=== PATIENT | female | born 1960 | race Caucasian/White ===

== ENCOUNTER → 2018-08-13 | Outpatient (CLI) | payer SELFPAY ==
[~2018-08-13] VITALS: Ht 162.6 cm; Wt 93.0 kg
[~2018-08-13] MED LIST: CEPH500C PO; CETI10TA17 PO; GLYB5TAB6 PO; INSU100V6 SQ; METO-387 PO; QUIN40TA14 PO
== END | disposition home or self-care (01) ==
LOC: PREOP 05:35 → EDSEX 05:35
PROVIDERS: ATTEND Podiatrist Foot & Ankle Surgery
DX: Z01.818 Encounter for other preprocedural examination (principal)

== ENCOUNTER 2018-08-15 05:47 | Day surgery (SDC) | payer BC ==
[~2018-08-15] VITALS: Ht 162.6 cm; Wt 93.0 kg
[2018-08-15] VITALS (9 sets, daily range): BP systolic 116–145; BP diastolic 61–80
[~2018-08-15 05:47] MED LIST changes: -CEPH500C PO
--- OUTSIDE RECORDS SUMMARY | 2018-08-15 05:51 | XMS REPORT | Continuity of Care Document ---
Author Organization Unknown Address Unknown Allergies There is no data. Medications There is no data. Problems There is no data. Procedures There is no data. Results Test Result Range A1C - 05/30/18 10:05 HEMOGLOBIN A1c 12.7 % of total Hgb <5.7 Encounters ACCT No. Visit Date/Time Discharge Status Pt. Type Provider Facility Loc./Unit Complaint [id number] 08/07/2018 13:40:00 08/07/2018 23:59:59 [facility] Outpatient CRYSTAL SCHAEFER [facility] [id number] 05/30/2018 10:00:00 Document Registration
[2018-08-15] MEDS ORDERED: fentaNYL INJECTION 100 MCG/2 ML AMP ONE (06:37)
[2018-08-15] MEDS ORDERED: proPOfol 200 MG/20 ML (DIPRIVAN) VIAL IV ONE (06:37)
[2018-08-15] MEDS ORDERED: LIDOCAINE PF 2% 5 ML (XYLOCAINE) VIAL ONE (06:37)
[2018-08-15] MEDS ORDERED: MIDAZOLAM 2 MG/2 ML (VERSED) VIAL ONE (06:37)
[2018-08-15] MEDS ORDERED: CLINDAMYCIN 600 MG/50 ML IVPB 50 ML IV ONE (07:00)
[2018-08-15] MEDS ORDERED: LIDOCAINE 1% INJ 20 ML 20 ML VIAL ONE (07:11)
[2018-08-15] MEDS ORDERED: BUPIVACAINE 0.5% 30 ML (SENSORCAINE) VIAL ONE (07:11)
--- NOTE | 2018-08-15 07:41 | Progress Note-Pre Operative ---
Pre-Operative Progress Note H&P Reviewed The H&P was reviewed, patient examined and no changes noted. Date Seen by Provider: Aug 15, 2018 Time Seen by Provider: 07:41 Date H&P Reviewed: Aug 15, 2018 Time H&P Reviewed: 07:41 Pre-Operative Diagnosis: Soft Tissue Lesion left foot SU WOLFE DPM Aug 15, 2018 07:41
[2018-08-15] MEDS ORDERED: inSUlin (REGULAR) HUMAN 1 UNIT/0.01 ML (CHARGE PER UNIT) SC NR (08:03)
[2018-08-15] MEDS ORDERED: PROPOFOL INJECTION 50 ML IV ONE (08:08)
[2018-08-15] MEDS ORDERED: LACTATED RINGERS 1,000 ML IV SCH (08:50)
--- NOTE | 2018-08-15 08:50 | Progress Note-Post Operative ---
Post-Operative Progess Note Surgeon (s)/Soft Work Cigar Machine Operator (s) Surgeon SU WOLFE DPM Soft Work Cigar Machine Operator: none Pre-Operative Diagnosis Soft Tissue Lesion left foot Post-Operative Diagnosis same Procedure & Operative Findings Date of Procedure 08/15/18 Procedure Performed/Findings Removal of soft tissue lesion left foot Anesthesia Type MAC Estimated Blood Loss Estimated blood loss (mL): Minimal Specimens/Packing Specimens Removed Soft Tissue Lesion (deep fascia area), left SU WOLFE DPM Aug 15, 2018 08:50
--- NOTE | 2018-08-15 08:52 | Anesthesia-General Post-Op ---
MAC Patient Condition Mental Status/LOC: Same as Preop Cardiovascular: Satisfactory Nausea/Vomiting: Absent Respiratory: Satisfactory Pain: Controlled Complications: Absent Post Op Complications Complications None Follow Up Care/Instructions Patient Instructions None needed. Anesthesiology Discharge Order Discharge Order Patient is doing well, no complaints, stable vital signs, no apparent adverse anesthesia problems. No complications reported per nursing. AVIVA HEDRICK CRNA Aug 15, 2018 08:52
[2018-08-15] MEDS ORDERED: CEPH500C PO (08:54)
[2018-08-15] MEDS ORDERED: ONDANSETRON 4 MG/2 ML (SDV) Z0FRAN IVP PRN (09:00)
[2018-08-15] MEDS ORDERED: fentaNYL INJECTION 100 MCG/2 ML AMP IVP ONE (09:00)
[2018-08-15] MEDS ORDERED: MEPERIDINE (DEMEROL) INJ 50 MG/ML IVP ONE (09:00)
--- NOTE | 2018-08-15 10:00 | NUR ---
PT HAD LR RUNNING WHEN SHE ARRIVED IN POST OP, 100CC LEFT TO COUNT UPON REMOVAL OF IV.
--- NOTE | 2018-08-15 15:43 | OPERATIVE REPORT ---
DATE OF SERVICE: 08/15/2018 SURGEON: Angela Wolfe DPM PREOPERATIVE DIAGNOSIS: Soft tissue lesion, plantar left foot. POSTOPERATIVE DIAGNOSIS: Soft tissue lesion, plantar left foot. PROCEDURE: Excision of soft tissue lesion, left foot. WOUND CLASS: Clean. ANESTHESIA: Monitored anesthesia care. HEMOSTASIS: Pneumatic ankle tourniquet at 250 mmHg. INDICATIONS: This 58-year-old female presents complaining of a lesion to the plantar aspect of the left foot that has gotten progressively larger over the last few months. Conservative therapy has met with unsatisfactory results and the patient is agreeable to surgical intervention after risks and complications were discussed at length including nonhealing, continued numbness, worsening of the numbness, need for further surgery, return of lesions or other complications including loss of limb or life and she is willing to proceed. DESCRIPTION OF PROCEDURE: The patient was brought back to the operating table, placed in a secure supine position. Appropriate timeout was performed. Anesthesia was achieved utilizing 10 mL of 1:1 mixture of 1% Xylocaine, 0.5% Marcaine injected in a posterior tibial block with great care not to infiltrate vascular structures. The injection utilized 5 mL of the mixture for the posterior tibial block and the remainder was a local infusion to the plantar lesion area of the left foot. The left foot was then prepped and draped in normal sterile manner after a tourniquet was applied to the left lower extremity. The left foot was then elevated and allowed to exsanguinate after which the tourniquet was inflated to 250 mmHg. Attention was then directed to the plantar medial aspect of the patient's left medial arch where a 3 cm medial to lateral incision was created along the skin lines. The incision was deepened in the same plane utilizing a combination of blunt and sharp dissection down to the deep fascia where a large nodule was identified. The nodule seemed to be well encapsulated and include the plantar fascia. The lesion was removed in toto and underlying muscle belly was found to be intact with no active bleeders. The specimen was sent for gross and microscopic evaluation. The wound was flushed with copious amounts of normal saline. No other abnormalities were identified at this time. The wound was flushed once again after which closure was then performed in layers. Deep closure was performed with 4-0 Vicryl, superficial closure with 4-0 Vicryl, skin closure with 4-0 Prolene in a simple interrupted type stitch. Postoperative dressing consisted of Betadine soaked Adaptic, sterile 4 x 4, sterile Kerlix, all secured with a Coban wrap. The patient is to be nonweightbearing on the left foot. She indicated preoperatively that she is able to take Keflex without any problems. A prescription for Keflex was given postoperatively. The patient will also utilize extra strength Tylenol postoperatively for pain management. We will see the patient back in the office in 10 days' period of time. She is to be nonweightbearing on the left lower extremity. Job ID: [id number] DocumentID: [id number] Dictated Date: 08/15/2018 09:00:49 Guitar Repairer Date: 08/15/2018 15:43:21 Dictated By: ANGELA WOLFE DPM
== END 2018-08-15 10:00 | disposition home or self-care (01) ==
LOC: EDSEX → SDC 05:47
PROVIDERS: ATTEND Podiatrist Foot & Ankle Surgery
DX: D48.1 Neoplasm of uncertain behavior of connective and other soft tissue (principal); Z11.2 Encounter for screening for other bacterial diseases; E11.9 Type 2 diabetes mellitus without complications; I10 Essential (primary) hypertension; G47.33 Obstructive sleep apnea (adult) (pediatric); E66.9 Obesity, unspecified; Z87.440 Personal history of urinary (tract) infections; Z68.35 Body mass index [BMI] 35.0-35.9, adult; Z88.2 Allergy status to sulfonamides; Z88.5 Allergy status to narcotic agent; Z88.0 Allergy status to penicillin; Z79.4 Long term (current) use of insulin; Z79.899 Other long term (current) drug therapy
CPT/HCPCS: 82962; 87081